=== PATIENT | male | born 1990 | race Caucasian/White ===

== ENCOUNTER 2024-05-16 15:53 | Emergency (ER) | payer SELFPAY ==
[~2024-05-16] VITALS: Ht 170.2 cm; Wt 90.7 kg
[2024-05-16 15:59] VITALS: BP 136/76; PULSE 93; RESP 18; TEMP 98.1; O2SAT 96
[2024-05-16 16:06] VITALS: BP 136/76; PULSE 93; RESP 18; TEMP 98.1; O2SAT 96
[2024-05-16] MEDS ORDERED: ARIP15TA1 PO (17:32)
== END 2024-05-16 17:38 | disposition home or self-care (01) ==
LOC: MED 15:53
DX: F43.9 Reaction to severe stress, unspecified (principal); R45.851 Suicidal ideations; F12.90 Cannabis use, unspecified, uncomplicated; F31.9 Bipolar disorder, unspecified; F20.9 Schizophrenia, unspecified; Z79.899 Other long term (current) drug therapy; Z76.0 Encounter for issue of repeat prescription
CPT/HCPCS: 99281